=== PATIENT | male | born 1975 | race Hispanic/Latino ===

== ENCOUNTER 2020-12-13 14:09 | Observation (INO) | payer BC, SELFPAY ==
--- NOTE | ~2020-12-13 | CT_ITS ---
EXAMINATION: CT brain wo con DATE: 12/13/2020 14:45 INDICATION: Syncope. TECHNIQUE: Computed tomography (CT) of the head was performed without intravenous contrast. The mA wa s adjusted according to patient size. Iterative reconstruction technique was employed. The dose-lengt h product was 605.33 mGy-cm. COMPARISON: None FINDINGS: There is no intracranial hemorrhage, acute infarction, or abnormal intracranial mass lesion . The ventricles are normal in size. There is mild mucosal thickening in the paranasal sinuses. The m astoid air cells are normal. The orbits are normal. IMPRESSION: 1. Normal brain. Reviewed, dictated and finalized at location A. IMPRESSION: 1. Normal brain.
[2020-12-13 14:11] VITALS: BP 131/80; PULSE 92; RESP 16; TEMP 37.1; O2SAT 100
--- NOTE | 2020-12-13 14:25 | ECG_ITS ---
Measurements Intervals [place] Rate: 94 P: 38 MO: 178 QRS: 8 QRSD: 97 T: 30 QT: 371 QTc: 465 Interpretive Statements SINUS RHYTHM ATRIAL PREMATURE COMPLEX BASELINE ARTIFACT- I, III, AVL, AVF BORDERLINE ECG Electronically Signed On 12-13-2020 20:38:39 CDT by Abimael Cox D.O.
[2020-12-13 14:30] LABS: Glucose Point of Care 287 mg/dl (65-105)
[2020-12-13 15:09] LABS: Basophils Percent Auto 0.6 % (0.2-1.2); Eosinophils Absolute Auto 0.1 K/mm3 (0-0.3); Eosinophils Percent Auto 0.9 % (0-4.4); Hematocrit 51.7 % (42.0-52.0); Hemoglobin 17.4 g/dL (14.0-18.0); Immature Granulocyte Absolute 0.03 K/mm3 (0.00-0.031); Immature Granulocyte Percent A 0.4 % (0-0.5); Immature Platelet Fraction Pct 11.2 % (0.9-11.2); Lymphocytes Absolute Auto 1.09 K/mm3 (0.9-3.2); Lymphocytes Percent Auto 15.8 % (18.3-44.2); Mean Corpuscular HGB Conc 33.7 g/dl (32-36); Mean Corpuscular Hemoglobin 32.8 pg (26-34); Mean Corpuscular Volume 97.5 fl (80-100); Mean Platelet Volume 11.3 fl (7.4-10.4); Monocytes Absolute Auto 0.6 K/mm3 (0.1-0.6); Monocytes Percent Auto 9.1 % (2.6-8.5); Neutrophils Percent Auto 73.2 % (45.5-73.1); Platelet Count Result 108 k/mm3 (150-375); Red Cell Distribution Width 11.9 % (11.5-14.5); White Blood Count 6.9 K/mm3 (4.5-10.0)
[2020-12-13 15:17] LABS: Anion Gap 13 mmol/L (8-16); Blood Urea Nitrogen 6 mg/dL (9-20); Calcium 9.1 mg/dL (8.4-10.2); Carbon Dioxide 21 mmol/L (22-30); Chloride 101 mmol/L (98-107); Estimated CRCL calculation 134 ml/min; Estimated Glomerular Filt Rate > 60; Glucose 280 mg/dL (65-110); Potassium 3.8 mmol/L (3.4-5.0); Sodium 135 mmol/L (137-145)
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
[2020-12-13 16:19] VITALS: BP 137/87; PULSE 81; RESP 16; O2SAT 98
[2020-12-13 16:35] LABS: Lactic Acid Reflex 1.6 mmol/L (0.7-2.1)
[2020-12-13 17:04] VITALS: BP 139/90; PULSE 76
[2020-12-13 17:05] VITALS: BP 137/88; PULSE 94
[2020-12-13 17:06] VITALS: BP 142/93; PULSE 84
--- NOTE | 2020-12-13 19:35 | ADMGEN ---
This patient, Prateek Ashton, was admitted to Medical Room 245-. Patient/family oriented to hospital policies and general routines including ID bracelet, bed and alarms, visiting hours, pain management, procedures, bathroom and other care routines, personal items, smoking policy, room service/diet, and visiting hours. Information on how to activate the Rapid Response Team has been discussed. Patient/Family are encouraged to report perceived risks to care and to ask questions if they do not understand what they are told or what they should do.
[2020-12-13 20:00] VITALS: BP 135/68; PULSE 84; PULSE 87; RESP 18; TEMP 37.2; O2SAT 96; BMI 30.1
[2020-12-14] VITALS: BP 117/65; PULSE 63; PULSE 80; RESP 18; TEMP 36.3; O2SAT 96
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
[2020-12-14 04:00] VITALS: BP 102/61; PULSE 71; PULSE 72; RESP 20; TEMP 36.2; O2SAT 98
[2020-12-14 08:00] VITALS: PULSE 71
[2020-12-14 10:00] VITALS: BP 120/64; PULSE 71; RESP 20; TEMP 36.8; O2SAT 100
[2020-12-14 10:20] LABS: Hemoglobin A1C 7.5 % (<5.7)
--- NOTE | 2020-12-14 11:17 | PCPTNOTE ---
On 12/14/20, the student, Abdoulaye Burrell, provided care and completed [facility] documentation on this patient. I have reviewed the student's documentation and agree with the findings.
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
[2020-12-16 04:28] LABS: Prolactin 8.1 ng/mL (***)
== END 2020-12-14 12:20 | disposition home or self-care (01) ==
LOC: ANHED 18:28 → ANH2MED 12-14 11:19
PROVIDERS: Admitting Provider Internal Medicine; Emergency Provider Emergency Medicine; Visit Provider Family Medicine
DX: R41.82 Altered mental status, unspecified (principal); R56.9 Unspecified convulsions; R41.89 Other symptoms and signs involving cognitive functions and awareness; E78.5 Hyperlipidemia, unspecified; Z87.891 Personal history of nicotine dependence
CPT/HCPCS: 36415; 70450; 80048; 82948; 83036; 83605; 84146; 85025; 85055; 93005; 97161; 99285; G0378